=== PATIENT | female | born 1980 | race Two or more races ===

== ENCOUNTER 2019-10-25 21:10 | Emergency (ER) | payer MEDICAID, OTHER ==
[~2019-10-25] VITALS: Ht 152.4 cm; Wt 52.2 kg
[2019-10-25 21:24] VITALS: BP 162/94
[2019-10-25] MEDS ORDERED: HYDROmorphone HCL 2 MG/ML VL IM ONE (21:45)
[2019-10-25] MEDS ORDERED: ONDANSETRON HCL 4 MG/2 ML VIAL IM ONE (21:45)
== END 2019-10-25 22:30 | disposition home or self-care (01) ==
LOC: EDBD 21:10 → ER 21:14
DX: M54.16 Radiculopathy, lumbar region (principal); M54.31 Sciatica, right side
CPT/HCPCS: 72131; 96372; 99284; J1170; J2405

== ENCOUNTER 2021-11-05 20:13 | Emergency (ER) | payer MEDICAID ==
[~2021-11-05] VITALS: Ht 152.4 cm; Wt 49.9 kg
[2021-11-05 20:13] VITALS: BP 181/85
[2021-11-05] MEDS ORDERED: LISI-716 PO (23:04)
[2021-11-05] MEDS ORDERED: cloNIDine HCL 0.1 MG TAB PO ONE (23:15)
[2021-11-05] MEDS ORDERED: SUMAtriptan SUCCINATE 6 MG/0.5 ML VL SC ONE (23:15)
== END 2021-11-06 00:33 | disposition home or self-care (01) ==
LOC: ER 20:15
DX: R51.9 Headache, unspecified (principal); I10 Essential (primary) hypertension
CPT/HCPCS: 70450; 96372

== ENCOUNTER 2022-01-04 06:16 | Emergency (ER) | payer MEDICAID ==
[~2022-01-04] VITALS: Ht 152.4 cm; Wt 51.7 kg
[~2022-01-04 06:16] MED LIST: LISI-716 PO
[2022-01-04 08:18] LABS: Basophils # (auto) 0 10 ^3/uL (0-0.2); Eosinophils # (auto) 0.1 10 ^3/uL (0-0.8); Hemoglobin 8.7 g/dL (12.2-16.2); Lymphocytes # (auto) 2.1 10 ^3/uL (0.4-5.4); Monocytes # (auto) 0.5 10 ^3/uL (0-1.3); Neutrophils # (auto) 1.8 10 ^3/uL (1.6-8.6); White Blood Cell 4.5 10^3/uL (4.4-10.8)
[2022-01-04 08:20] LABS: Basophils % (auto) 0.8 % (0.0-2.0); Eosinophils % (auto) 1.4 % (0.0-7.0); Hematocrit 27.6 % (36.0-46.0); Lymphocytes % (auto) 46.9 % (10.0-50.0); Mean Corpuscular Hemoglobin 21.1 pg (28.0-32.0); Mean Corpuscular Hgb Conc. 31.6 g/dL (32.0-36.0); Mean Corpuscular Volume 66.7 fL (80.0-100.0); Monocytes % (auto) 10.8 % (0.0-12.0); Neutrophils % (auto) 40.1 % (37.0-80.0); Nucleated Red Blood Cells % 0.2 %; Red Blood Cells 4.13 10^6/uL (4.0-5.20)
[2022-01-04 08:25] LABS: Red Cell Distribution Width 21.7 % (11.8-14.3)
[2022-01-04 08:26] LABS: Albumin 4.1 g/dL (3.4-5.0); Calcium 8.3 mg/dL (8.5-10.1); Magnesium 2.9 mg/dL (1.6-2.6); Potassium 3.3 mmol/L (3.5-5.1)
[2022-01-04 08:29] LABS: BUN/Creatinine Ratio 11.5
[2022-01-04 08:31] LABS: Bilirubin, Total 0.3 mg/dL (0.2-1.0); Total Protein 7.9 g/dL (6.4-8.2)
[2022-01-04] MEDS ORDERED: ALPR0.5T PO (14:04)
[2022-01-04 15:39] VITALS: BP 131/83
== END 2022-01-04 15:40 | disposition home or self-care (01) ==
LOC: ER 06:16
DX: R07.89 Other chest pain (principal); E03.9 Hypothyroidism, unspecified; R94.6 Abnormal results of thyroid function studies
CPT/HCPCS: 36415; 71045; 80053; 83735; 84443; 84484; 85025; 93005